=== PATIENT | male | born 2000 | race Caucasian/White ===

== ENCOUNTER 2018-07-01 12:56 | Emergency (ER) | payer OTHER ==
[2018-07-01] MEDS ORDERED: NAPROXEN 250 MG TABLET PO STA (13:52)
--- NOTE | 2018-07-01 14:46 | XRAY Report ---
Reason: cp Procedure Date: 07/01/2018 Accession Number: [id number] / [id number] Procedure: XR - Chest 2 View X-Ray CPT Code: 46297 FULL RESULT: EXAM: CHEST RADIOGRAPHY EXAM DATE: 07/01/2018 02:30 PM. CLINICAL HISTORY: Cp. COMPARISON: None. TECHNIQUE: 2 views. FINDINGS: Lungs/Pleura: No focal opacities evident. No pleural effusion. No pneumothorax. Normal volumes. Mediastinum: Heart and mediastinal contours are unremarkable. Other: None. IMPRESSION: Normal 2-view chest radiography. [facility]
--- NOTE | 2018-07-01 15:16 | ED Physician Documentation ---
History of Present Illness - Stated complaint Stated Complaint: SOA/TIGHNESS - Chief complaint Chief Complaint: Resp - Additonal information Additional information: 18-year-old male presents the emergency department for evaluation of day 2 of generalized weakness, body aches, chills, feeling feverish, feeling short of breath and generally unwell. The symptoms started rather suddenly yesterday while out after eating. The patient's symptoms have continued today.Symptoms are described as mild. No other associated symptoms. No relieving factors. Review of Systems Constitutional: reports: Fever, Chills, Myalgias, Fatigue Eyes: denies: Discharge Ears: denies: Ear pain Nose: denies: Rhinorrhea / runny nose Throat: reports: Sore throat Respiratory: reports: Dyspnea GI: denies: Abdominal Pain : denies: Dysuria Skin: denies: Rash Musculoskeletal: denies: Neck pain Neurologic: denies: Generalized weakness PD PAST MEDICAL HISTORY - Present Medications Home Medications: Ambulatory Orders Medication Instructions Recorded Confirmed No Known Home Medications 07/01/18 07/01/18 - Allergies Allergies/Adverse Reactions: Allergies Allergy/AdvReac Type Severity Reaction Status Date / Time Penicillins Allergy Rash Verified 07/01/18 13:09 - Social History Does the pt smoke?: No Smoking Status: Never smoker PD ED PE NORMAL - General General: Alert and oriented X 3, No acute distress - HEENT HEENT: Atraumatic, PERRL, EOMI, Ears normal - Neck Neck: Supple, no meningeal sign - Cardiac Cardiac: RRR, Strong equal pulses - Respiratory Respiratory: No respiratory distress - Abdomen Abdomen: Soft, Non tender - Derm Derm: Normal color - Extremities Extremities: No deformity, No edema - Neuro Neuro: Alert and oriented X 3, casing in line feeder 2-12 intact, Normal speech - Psych Psych: Normal mood Results - Vitals Vitals: Vital Signs - 24 hr 07/01/18 13:07 Temperature 36.4 C L Heart Rate 91 Respiratory 20 Rate Blood Pressure 146/93 H O2 Saturation 100 Oxygen O2 Source Room air - EKG (time done) 14:07 Rate: Rate (enter#) Rhythm: NSR Intervals: Normal [place] QRS: Normal Ischemia: Normal ST segments - Labs Labs: Laboratory Tests 07/01/18 14:04 Influenza A (Rapid) Negative Influenza B (Rapid) Negative - Rads (name of study) CXR Radiology: Final report received, See rad report (IMPRESSION: Normal 2-view chest radiography. ) PD MEDICAL DECISION MAKING - ED course ED course: The patient's symptoms seem to be consistent with a viral etiology. The patient on reevaluation is resting comfortably and appears to be in no acute distress and appears appropriate for discharge and ongoing outpatient management. The patient will return to the emergency department for any worsening or any concerns. Departure - Departure Disposition: 01 Home, Self Care Clinical Impression: Viral syndrome Condition: Good Instructions: ED Viral Syndrome Follow-Up: CLIFF[facility] Mina [Provider Group] - Within 1 week Comments: Please return to the emergency department for worsening symptoms or any concerns
[2018-07-01 15:30] VITALS: BP 129/79
== END 2018-07-01 15:30 | disposition home or self-care (01) ==
LOC: ED 12:56
DX: B34.9 Viral infection, unspecified (principal); Z88.0 Allergy status to penicillin
CPT/HCPCS: 71046; 87275; 87276; 93005; 99283; A9270

== ENCOUNTER 2019-03-23 17:46 | Emergency (ER) | payer OTHER ==
[2019-03-23 18:02] VITALS: BP 139/58
--- NOTE | 2019-03-23 18:28 | ED Physician Documentation ---
PD HPI HEENT - Stated complaint Stated Complaint: DENTAL PX - Chief complaint Chief Complaint: Heent - History obtained from History obtained from: Patient - History of Present Illness Timing - duration: Days (2-3) Timing - details: Gradual onset Severity Comments: Minimal pain that is relieved with ibuprofen Location: Other (Right jaw at the site of wisdom tooth extraction) Associated symptoms: No: Fever Recently seen: Not recently seen - Additional information Additional information: Is a 19-year-old who had his wisdom teeth extracted 8 days ago. He had a follow-up5 days ago and things seem to be doing well. He is now developed a weird taste coming from the socket on the bottom right. The other sites have healed without any problem. He has not had a fever. He feels like his right ears are ringing all the time. He has minimal pain that is relieved with ibuprofen. He is allergic to penicillin it causes a rash. No fever. Review of Systems Constitutional: denies: Fever Ears: reports: Tinnitus/ringing Throat: reports: Dental pain / toothache PD PAST MEDICAL HISTORY - Present Medications Home Medications: Ambulatory Orders Medication Instructions Recorded Confirmed Clindamycin HCl [Clindamycin 300MG 300 mg PO QID #40 capsule 03/23/19 CAP] - Allergies Allergies/Adverse Reactions: Allergies Allergy/AdvReac Type Severity Reaction Status Date / Time Penicillins Allergy Rash Verified 03/23/19 17:57 - Social History Does the pt smoke?: No Smoking Status: Never smoker PD ED PE NORMAL - Vitals Vital signs reviewed: Yes - General General: Alert and oriented X 3, No acute distress, Well developed/nourished - HEENT HEENT: Atraumatic, Moist mucous membranes, Other (The extraction sites on the left upper and lower are well-healed. The right lower there is still a hole president. There is no distinct odor. There is no inflammatory changes noted. No jaw swelling and no bony tenderness. There is no lymphadenopathy.) - Neck Neck: No adenopathy - Derm Derm: Normal color - Neuro Neuro: Alert and oriented X 3, Normal speech - Psych Psych: Normal mood, Normal affect Results - Vitals Vitals: Vital Signs - 24 hr 03/23/19 17:57 Temperature 36.8 C Heart Rate 85 Respiratory 16 Rate Blood Pressure 139/58 H O2 Saturation 100 Oxygen O2 Source Room air PD MEDICAL DECISION MAKING - ED course Complexity details: d/w patient ED course: 2 of 3 wisdom tooth extraction sites have healed well. Will place him on clindamycin given the penicillin allergy. He is to continue swishing with the oral rinse he was provided by the dentist. Recommended that he contact them for follow-up appointment to make sure that any infection has cleared. Departure - Departure Disposition: 01 Home, Self Care Clinical Impression: Pain, dental, Status post tooth extraction Condition: Good Instructions: ED Tooth Pain Follow-Up: [facility] Mina [Provider Group] Prescriptions: Clindamycin HCl [Clindamycin 300MG CAP] 300 mg PO QID #40 capsule Comments: Continue to do the oral rinses as prescribed by the dentist. Take the clindamycin 1 tablet 4 times a day. I would recommend that you take probiotics while you are taking the antibiotic and for 2 weeks afterwards. Follow-up with the dentist for reevaluation and make sure that the infection has been cleared. Discharge Date/Time: 03/23/19 18:40
== END 2019-03-23 18:40 | disposition home or self-care (01) ==
LOC: ED 17:46
DX: K08.89 Other specified disorders of teeth and supporting structures (principal); Z98.818 Other dental procedure status; Z88.0 Allergy status to penicillin; H93.11 Tinnitus, right ear
CPT/HCPCS: 99282; 99284

== ENCOUNTER 2019-06-11 12:06 | Emergency (ER) | payer OTHER ==
[2019-06-11 12:58] LABS: BASOPHILS % (AUTO) 0.4 %; EOSINOPHILS % (AUTO) 0.4 %; HGB - HEMOGLOBIN 14.6 g/dL (14.0-18.0); LYMPHOCYTES # (AUTO) 1.3 10^3/uL (1.5-3.5); LYMPHOCYTES % (AUTO) 25.8 %; MEAN CORPUSCULAR HEMOGLOBIN 30.4 pg (27.0-31.0); MEAN CORPUSCULAR HGB CONC 33.8 g/dL (32.0-36.0); MEAN CORPUSCULAR VOLUME 89.8 fL (80.0-94.0); MEAN PLATELET VOLUME 9.7 fL (7.4-11.4); MONOCYTES # (AUTO) 0.4 10^3/uL (0.0-1.0); MONOCYTES % (AUTO) 7.6 %; NEUTROPHILS # (AUTO) 3.2 10^3/uL (1.5-6.6); NEUTROPHILS % (AUTO) 65.6 %; PLT - PLATELET COUNT 246 10^3/uL (130-450); RED BLOOD COUNT 4.81 10^6/uL (4.70-6.10); RED CELL DISTRIBUTION WIDTH 11.4 % (12.0-15.0); WHITE BLOOD COUNT 4.9 x10^3/uL (4.8-10.8)
[2019-06-11 13:16] LABS: ALBUMIN 4.4 g/dL (3.2-5.5); BILIRUBIN,TOTAL 2.4 mg/dL (0.2-1.0); CALCIUM 9.4 mg/dL (8.5-10.3); TOTAL PROTEIN 6.6 g/dL (6.7-8.2)
[2019-06-11 15:35] LABS: BILIRUBIN,URINE NEGATIVE (NEGATIVE); GLUCOSE, URINE (UA) NEGATIVE (NEGATIVE); KETONES,URINE (UA) NEGATIVE (NEGATIVE); LEUKOCYTE ESTERASE, URINE TRACE (NEGATIVE); NITRITE,URINE NEGATIVE (NEGATIVE); OCCULT BLOOD,URINE NEGATIVE (NEGATIVE); PROTEIN,URINE NEGATIVE (NEGATIVE); UROBILINOGEN,URINE 0.2 (NORMAL) E.U./dL (NORMAL)
--- NOTE | 2019-06-11 15:35 | ED Physician Documentation ---
History of Present Illness - Stated complaint Stated Complaint: ABD PX - Chief complaint Chief Complaint: Abd Pain - Additonal information Additional information: This is a 19-year-old male who denies past medical history presents with abdomi nal pain for 4 to 5 months which got little bit worse recently. He states that his pain is been mostly left upper quadrant somewhat intermittent, radiates toward his epigastrium. In the last several days he is also had a bit of discomfort in his right lower quadrant this is come and gone. No nausea no vomiting no blood in his stool, he has not felt constipated. He has not yet seen a provider for this issue. He has not tried medications for it. No testicular pain, no pain or burning when he urinates. Review of Systems Constitutional: denies: Fever Cardiac: denies: Chest pain / pressure GI: reports: Abdominal Pain : denies: Dysuria Neurologic: denies: Generalized weakness Immunocompromised: denies: Immunocompromised PD PAST MEDICAL HISTORY - Past Medical History Past Medical History: No HEENT: Other - Past Surgical History Past Surgical History: No - Present Medications Home Medications: Ambulatory Orders Medication Instructions Recorded Confirmed Clindamycin HCl [Clindamycin 300MG 300 mg PO QID #40 capsule 03/23/19 CAP] Famotidine [Acid Controller] 20 mg PO DAILY #14 tablet 06/11/19 - Allergies Allergies/Adverse Reactions: Allergies Allergy/AdvReac Type Severity Reaction Status Date / Time Penicillins Allergy Rash Verified 06/11/19 12:15 - Social History Does the pt smoke?: No Smoking Status: Never smoker Does the pt drink ETOH?: Yes ETOH Use: Beer - Immunizations Immunizations are current?: Yes PD ED PE NORMAL - Vitals Vital signs reviewed: Yes - General General: Alert and oriented X 3, No acute distress - HEENT HEENT: PERRL - Neck Neck: Supple, no meningeal sign - Cardiac Cardiac: RRR, No murmur - Respiratory Respiratory: Clear bilaterally - Abdomen Abdomen: Soft, Non tender, Non distended, Other (No guarding. No right lower quadrant or right upper quadrant tenderness with deep palpation) - Derm Derm: Warm and dry - Extremities Extremities: No deformity - Neuro Neuro: Alert and oriented X 3, filter washer and presser 2-12 intact, No motor deficit, No sensory deficit - Psych Psych: Normal mood, Normal affect Results - Vitals Vitals: Vital Signs - 24 hr 06/11/19 06/11/19 12:11 15:36 Temperature 36.5 C 36.6 C Heart Rate 67 82 Respiratory 18 16 Rate Blood Pressure 134/73 H 121/70 O2 Saturation 100 99 Oxygen O2 Source Room air - Labs Labs: Laboratory Tests 06/11/19 06/11/19 06/11/19 12:50 12:50 15:23 WBC 4.9 RBC 4.81 Hgb 14.6 Hct 43.2 MCV 89.8 MCH 30.4 MCHC 33.8 RDW 11.4 L Plt Count 246 MPV 9.7 Neut # (Auto) 3.2 Lymph # (Auto) 1.3 L [place] # (Auto) 0.4 Eos # (Auto) 0.0 Baso # (Auto) 0.0 Absolute Nucleated RBC 0.00 Nucleated RBC % 0.0 Sodium 140 Potassium 4.1 Chloride 101 Carbon Dioxide 28 Anion Gap 11.0 BUN 15 Creatinine 1.0 Estimated GFR (MDRD) 94 Glucose 97 Calcium 9.4 Total Bilirubin 2.4 H AST 21 ALT 16 Alkaline Phosphatase 51 Total Protein 6.6 L Albumin 4.4 Globulin 2.2 Albumin/Globulin Ratio 2.0 Lipase 24 Urine Color YELLOW Urine Clarity CLEAR Urine pH 6.0 Ur Specific [place] 1.025 Urine Protein NEGATIVE Urine Glucose (UA) NEGATIVE Urine Ketones NEGATIVE Urine Occult Blood NEGATIVE Urine Nitrite NEGATIVE Urine Bilirubin NEGATIVE Urine Urobilinogen 0.2 (NORMAL) Ur Leukocyte Esterase TRACE H Urine RBC None Seen Urine WBC 0-3 Ur Squamous Epith Cells NONE SEEN Urine Bacteria None Seen Ur Microscopic Review INDICATED Urine Culture Comments INDICATED Chlam trachomat DNA PCR N.gonorrhoeae DNA (PCR) T. vaginalis (PCR) 06/11/19 15:23 WBC RBC Hgb Hct MCV MCH MCHC RDW Plt Count MPV Neut # (Auto) Lymph # (Auto) [place] # (Auto) Eos # (Auto) Baso # (Auto) Absolute Nucleated RBC Nucleated RBC % Sodium Potassium Chloride Carbon Dioxide Anion Gap BUN Creatinine Estimated GFR (MDRD) Glucose Calcium Total Bilirubin AST ALT Alkaline Phosphatase Total Protein Albumin Globulin Albumin/Globulin Ratio Lipase Urine Color Urine Clarity Urine pH Ur Specific [place] Urine Protein Urine Glucose (UA) Urine Ketones Urine Occult Blood Urine Nitrite Urine Bilirubin Urine Urobilinogen Ur Leukocyte Esterase Urine RBC Urine WBC Ur Squamous Epith Cells Urine Bacteria Ur Microscopic Review Urine Culture Comments Chlam trachomat DNA PCR NEGATIVE N.gonorrhoeae DNA (PCR) NEGATIVE T. vaginalis (PCR) NEGATIVE PD MEDICAL DECISION MAKING - ED course ED course: On examination patient is very well-appearing, vital signs are benign I do not elicit any tenderness of the palpation and any of the 4 abdominal quadrants. He has no vomiting, no urinary complaints, no scrotal pain. His pain is also been going on for 4 to 5 months, making acute abdominal pathology extremely unlikely. His labs show no leukocytosis, CBC is within normal limits, his CMP is notable only for a mildly elevated bilirubin of 2.4. He has no right upper quadrant pain with deep palpation, his discomfort is on the left upper quadrant. No signs of acute biliary pathology at this time. His urine does not show convincing signs of infection, he does have 0-3 white blood cells, and out of an abundance of caution I did send Chlamydia gonorrhea, which is also negative. I discussed with the patient that given his reassuring labs, vital signs, and abdominal exam I recommended close outpatient follow up and it would also be reasonable to try acid blocking medication given he occasionally has a burning sensations epi gastrium that improved when he burps. I prescribed him famotidine. I discussed the importance of PCP follow-up, and also discussed return precautions, particularly if he is having pain that localizes to his right upper right lower quadrant, if he is having persistent vomiting, fever, or any other concerning symptoms. Patient agreed with this plan was discharged home in very good condition. Departure - Departure Disposition: 01 Home, Self Care Clinical Impression: Abdominal pain Qualifiers: Abdominal location: unspecified location Qualified Code(s): R10.9 - Unspecified abdominal pain Condition: Good Instructions: ED Abdominal Pain Unkn Cause Prescriptions: Famotidine [Acid Controller] 20 mg PO DAILY #14 tablet Comments: You were seen today for abdominal discomfort. Your labs are reassuring at this time, and I have not seen obvious cause of your pain. Please follow-up with your primary care provider. If you having new or concerning symptoms such as pain that localizes to right lower quadrant, vomiting, fever, or other concerning symptoms return to the emergency department. Discharge Date/Time: 06/11/19 16:14
[2019-06-11 15:38] VITALS: BP 121/70
[2019-06-11 15:38] LABS: CLARITY,URINE CLEAR (CLEAR)
[2019-06-11 15:50] LABS: BACTERIA,URINE None Seen /HPF (None Seen); RBC,URINE None Seen /HPF (0-5); SQUAMOUS EPITHELIAL CELL,UR NONE SEEN (<= Few)
[2019-06-11 23:24] LABS: TRICHOMONAS VAGINALIS DNA NEGATIVE (NEGATIVE)
== END 2019-06-11 16:14 | disposition home or self-care (01) ==
LOC: ED 12:06
DX: R10.12 Left upper quadrant pain (principal)
CPT/HCPCS: 36415; 80053; 81001; 81003; 83690; 85025; 87086; 87491; 87591; 87661; 99283; 99284

== ENCOUNTER 2019-06-18 18:44 | Emergency (ER) | payer OTHER ==
--- NOTE | 2019-06-18 20:11 | ED Physician Documentation ---
PD HPI CHEST PAIN - Stated complaint Stated Complaint: PALPUTATIONS,DIZZY - Chief complaint Chief Complaint: Cardiac - History obtained from History obtained from: Patient - History of Present Illness Timing - onset: How many days ago (4) Timing - onset during: Rest Timing - duration: Days (4) Timing - details: Gradual onset, Still present, Intermittant Quality: Throbbing (has intermittent feeling of heart surging/jumping. Has noted his heart rate faster about 100-110 at times (according to his watch heart beat monitor). Did not have any HR in the 140-180 range. Had drank a lot on Monday night, so thought maybe dehydrated. Had some Red Bulls with it as well and does not drink caffeine usually. Has continued with the palpitations feeling since, so here for eval. No dyspnea nor lightheaded feelings.). No: Pressure, Tightness Location: Substernal, Left chest Worsened by: Other (notes the symptoms most when resting.). No: Exertion, Inspiration Associated symptoms: Palpitations. No: Shortness of air, Nausea, Vomiting, Feeling faint / dizzy Similar symptoms before: Has not had sx before Recently seen: Not recently seen Review of Systems Constitutional: denies: Fever, Chills, Myalgias Nose: denies: Rhinorrhea / runny nose, Congestion Throat: denies: Sore throat Cardiac: reports: Palpitations. denies: Chest pain / pressure, Pedal edema, Calf pain Respiratory: denies: Cough GI: denies: Nausea, Vomiting, Constipation, Diarrhea Neurologic: denies: Focal weakness, Numbness, Near syncope, Altered mental status PD PAST MEDICAL HISTORY - Past Medical History Cardiovascular: None Respiratory: None Neuro: None Endocrine/Autoimmune: None HEENT: Other - Past Surgical History Past Surgical History: No - Present Medications Home Medications: Ambulatory Orders Medication Instructions Recorded Confirmed Famotidine [Acid Controller] 20 mg PO DAILY #14 tablet 06/11/19 Potassium Chloride 10 meq PO DAILY #15 capsule.er 06/18/19 - Allergies Allergies/Adverse Reactions: Allergies Allergy/AdvReac Type Severity Reaction Status Date / Time Penicillins Allergy Rash Verified 06/18/19 18:52 - Social History Does the pt smoke?: No Smoking Status: Never smoker Does the pt drink ETOH?: Yes - Immunizations Immunizations are current?: Yes PD ED PE NORMAL - Vitals Vital signs reviewed: Yes - General General: Alert and oriented X 3, No acute distress, Well developed/nourished - HEENT HEENT: Moist mucous membranes, Pharynx benign - Neck Neck: Supple, no meningeal sign, No adenopathy, Thyroid normal - Cardiac Cardiac: RRR, No murmur - Respiratory Respiratory: Clear bilaterally - Abdomen Abdomen: Soft, Non tender - Derm Derm: Normal color, Warm and dry - Extremities Extremities: No tenderness to palpate, Normal ROM s pain, No edema, No calf tenderness / cord - Neuro Neuro: Alert and oriented X 3, No motor deficit, Normal speech Results - Vitals Vitals: Vital Signs - 24 hr 06/18/19 06/18/19 18:49 21:16 Temperature 36.8 C Heart Rate 80 80 Respiratory 18 18 Rate Blood Pressure 148/88 H 114/75 O2 Saturation 100 100 Oxygen O2 Source Room air - EKG (time done) 18:57 Rate: Rate (enter#) (81) Rhythm: NSR [place]: Normal Intervals: Normal [place] QRS: Normal Ischemia: Normal ST segments. No: ST elevation c/w ischemia, ST depression - Labs Labs: Laboratory Tests 06/18/19 06/18/19 06/18/19 20:20 20:20 20:20 WBC 7.2 RBC 4.68 L Hgb 14.1 Hct 41.6 L MCV 88.9 MCH 30.1 MCHC 33.9 RDW 11.6 L Plt Count 249 MPV 9.8 Neut # (Auto) 4.9 Lymph # (Auto) 1.8 [place] # (Auto) 0.5 Eos # (Auto) 0.0 Baso # (Auto) 0.0 Absolute Nucleated RBC 0.00 Nucleated RBC % 0.0 Sodium 137 Potassium 3.4 L Chloride 97 L Carbon Dioxide 29 Anion Gap 11.0 BUN 19 Creatinine 1.1 Estimated GFR (MDRD) 85 L Glucose 94 Calcium 9.1 Magnesium 2.2 Total Bilirubin 2.3 H AST 20 ALT 14 Alkaline Phosphatase 52 Total Protein 7.0 Albumin 4.5 Globulin 2.5 Albumin/Globulin Ratio 1.8 Lipase 27 TSH 1.19 PD MEDICAL DECISION MAKING - ED course Complexity details: reviewed results (slightly low potassium. Else normal. ), considered differential, d/w patient Departure - Departure Disposition: 01 Home, Self Care Clinical Impression: Palpitations, Hypokalemia Condition: Stable Record reviewed to determine appropriate education?: Yes Instructions: ED Palpitations Prescriptions: Potassium Chloride 10 meq PO DAILY #15 capsule.er Comments: Your EKG is normal here. The palpitations you are feeling may be a persistent effect from the caffeine and such that you had a few days ago. Stay well- hydrated. And I would anticipate this to improve over the next few days. Your potassium level is a little bit low and can be enhancing the palpitations occurring. Add a potassium supplement over the next week or so. Recheck if not improved over the next few days. Discharge Date/Time: 06/18/19 21:43
[2019-06-18 20:25] LABS: BASOPHILS % (AUTO) 0.3 %; EOSINOPHILS % (AUTO) 0.3 %; HGB - HEMOGLOBIN 14.1 g/dL (14.0-18.0); LYMPHOCYTES # (AUTO) 1.8 10^3/uL (1.5-3.5); LYMPHOCYTES % (AUTO) 25.2 %; MEAN CORPUSCULAR HEMOGLOBIN 30.1 pg (27.0-31.0); MEAN CORPUSCULAR HGB CONC 33.9 g/dL (32.0-36.0); MEAN CORPUSCULAR VOLUME 88.9 fL (80.0-94.0); MEAN PLATELET VOLUME 9.8 fL (7.4-11.4); MONOCYTES # (AUTO) 0.5 10^3/uL (0.0-1.0); MONOCYTES % (AUTO) 6.9 %; NEUTROPHILS # (AUTO) 4.9 10^3/uL (1.5-6.6); PLT - PLATELET COUNT 249 10^3/uL (130-450); RED BLOOD COUNT 4.68 10^6/uL (4.70-6.10); RED CELL DISTRIBUTION WIDTH 11.6 % (12.0-15.0); WHITE BLOOD COUNT 7.2 x10^3/uL (4.8-10.8)
[2019-06-18] MEDS ORDERED: POTASSIUM CHLORIDE 20 MEQ TABLET PO STA (20:35)
[2019-06-18 20:38] LABS: ALBUMIN 4.5 g/dL (3.2-5.5); ALBUMIN/GLOBULIN RATIO 1.8 (1.0-2.2); BILIRUBIN,TOTAL 2.3 mg/dL (0.2-1.0); CALCIUM 9.1 mg/dL (8.5-10.3); CREATININE 1.1 mg/dL (0.6-1.2); MAGNESIUM 2.2 mg/dL (1.7-2.8)
[2019-06-18] MEDS ORDERED: MAGNESIUM OXIDE 400 MG TABLET PO STA (20:46)
[2019-06-18 21:17] VITALS: BP 114/75
[2019-06-19] MEDS ORDERED: MAGNESIUM OXIDE 400 MG TABLET PO SCH (08:00)
== END 2019-06-18 21:43 | disposition home or self-care (01) ==
LOC: ED 18:44
DX: R00.2 Palpitations (principal); E87.6 Hypokalemia
CPT/HCPCS: 36415; 83690; 83735; 93005; 99283; 99284; A9270; 80053; 84443; 85025

== ENCOUNTER 2021-01-10 15:29 | Emergency (ER) | payer OTHER ==
[2021-01-10 16:18] LABS: BASOPHILS % (AUTO) 0.3 %; EOSINOPHILS % (AUTO) 0.4 %; HCT - HEMATOCRIT 43.5 % (42.0-52.0); HGB - HEMOGLOBIN 14.6 g/dL (14.0-18.0); LYMPHOCYTES # (AUTO) 1.6 10^3/uL (1.5-3.5); LYMPHOCYTES % (AUTO) 19.8 %; MEAN CORPUSCULAR HEMOGLOBIN 30.5 pg (27.0-31.0); MEAN CORPUSCULAR HGB CONC 33.6 g/dL (32.0-36.0); MEAN CORPUSCULAR VOLUME 90.8 fL (80.0-94.0); MEAN PLATELET VOLUME 9.7 fL (7.4-11.4); MONOCYTES # (AUTO) 0.6 10^3/uL (0.0-1.0); MONOCYTES % (AUTO) 7.3 %; NEUTROPHILS # (AUTO) 5.7 10^3/uL (1.5-6.6); NEUTROPHILS % (AUTO) 71.8 %; PLT - PLATELET COUNT 232 10^3/uL (130-450); RED BLOOD COUNT 4.79 10^6/uL (4.70-6.10); RED CELL DISTRIBUTION WIDTH 11.6 % (12.0-15.0); WHITE BLOOD COUNT 7.9 x10^3/uL (4.8-10.8)
[2021-01-10 16:32] LABS: ALBUMIN 4.2 g/dL (3.2-5.5); ALBUMIN/GLOBULIN RATIO 1.9 (1.0-2.2); BILIRUBIN,TOTAL 1.8 mg/dL (0.2-1.0); CALCIUM 9.6 mg/dL (8.5-10.3); POTASSIUM 4.2 mmol/L (3.5-5.0); TOTAL PROTEIN 6.4 g/dL (6.7-8.2)
[2021-01-10 17:59] LABS: BILIRUBIN,URINE NEGATIVE (NEGATIVE); GLUCOSE, URINE (UA) NEGATIVE (NEGATIVE); KETONES,URINE (UA) NEGATIVE (NEGATIVE); LEUKOCYTE ESTERASE, URINE NEGATIVE (NEGATIVE); NITRITE,URINE NEGATIVE (NEGATIVE); OCCULT BLOOD,URINE NEGATIVE (NEGATIVE); PROTEIN,URINE NEGATIVE (NEGATIVE); UROBILINOGEN,URINE 0.2 (NORMAL) E.U./dL (NORMAL)
[2021-01-10 18:00] LABS: CLARITY,URINE CLEAR (CLEAR)
[2021-01-10] MEDS ORDERED: IOPAMIDOL-300 100 ML VIAL ONE (18:13)
--- NOTE | 2021-01-10 18:15 | ED Physician Documentation ---
PD HPI ABD PAIN - Stated complaint Stated Complaint: ABD PX - Chief complaint Chief Complaint: Abd Pain - History obtained from History obtained from: Patient - History of Present Illness Timing - onset: How many weeks ago (2) Timing - duration: Weeks (2) Timing - details: Intermittant, Waxing and waning Pain level max: 7 Pain level now: 3 Quality: Aching, Pain Location: RLQ Radiation: No: Chest, , Lower back, Left flank, Left shoulder, Right flank, Right shoulder, Upper back Improved by: No: Eating, Laying still, Vomiting, BM, Position, Meds Worsened by: Moving, Palpation Associated symptoms: No: Fever, Nausea, Vomiting, Hematemesis, Diarrhea, Constipation, Melena, Hematochezia, Dysuria, Hematuria Review of Systems Ten Systems: 10 systems reviewed and negative Constitutional: denies: Fever, Chills Nose: denies: Rhinorrhea / runny nose, Congestion Throat: denies: Sore throat Cardiac: denies: Palpitations Respiratory: denies: Cough GI: denies: Abdominal Pain, Nausea, Vomiting, Diarrhea Skin: denies: Rash Musculoskeletal: denies: Neck pain, Back pain Neurologic: denies: Headache PD PAST MEDICAL HISTORY - Past Medical History Cardiovascular: None Respiratory: None Neuro: None Endocrine/Autoimmune: None HEENT: Other - Past Surgical History Past Surgical History: No - Present Medications Home Medications: Ambulatory Orders Medication Instructions Recorded Confirmed Famotidine [Acid Controller] 20 mg PO DAILY #14 tablet 06/11/19 Potassium Chloride 10 meq PO DAILY #15 capsule.er 06/18/19 - Allergies Allergies/Adverse Reactions: Allergies Allergy/AdvReac Type Severity Reaction Status Date / Time Penicillins Allergy Rash Verified 01/10/21 16:09 - Social History Does the pt smoke?: No Smoking Status: Never smoker Does the pt drink ETOH?: Yes Does the pt have substance abuse?: No - Immunizations Immunizations are current?: Yes PD ED PE NORMAL - Vitals Vital signs reviewed: Yes - General General: Alert and oriented X 3, No acute distress - HEENT HEENT: Moist mucous membranes - Neck Neck: Supple, no meningeal sign - Cardiac Cardiac: RRR, Strong equal pulses - Respiratory Respiratory: No respiratory distress, Clear bilaterally - Abdomen Abdomen: Soft, Non distended, Other (mild TTP RLQ. no peritoneal signs.) - Back Back: No CVA TTP, No spinal TTP - Derm Derm: Warm and dry - Neuro Neuro: Alert and oriented X 3 - Psych Psych: Normal mood, Normal affect Results - Vitals Vitals: Vital Signs - 24 hr 01/10/21 01/10/21 01/10/21 16:07 19:28 20:10 Temperature 36.6 C 37.1 C Heart Rate 72 60 70 Respiratory 16 16 16 Rate Blood Pressure 140/79 H 136/73 H 132/68 H O2 Saturation 100 100 100 Oxygen O2 Source Room air - Labs Labs: Laboratory Tests 01/10/21 01/10/21 01/10/21 16:14 16:14 17:52 WBC 7.9 RBC 4.79 Hgb 14.6 Hct 43.5 MCV 90.8 MCH 30.5 MCHC 33.6 RDW 11.6 L Plt Count 232 MPV 9.7 Neut # (Auto) 5.7 Lymph # (Auto) 1.6 [place] # (Auto) 0.6 Eos # (Auto) 0.0 Baso # (Auto) 0.0 Absolute Nucleated RBC 0.00 Nucleated RBC % 0.0 Sodium 144 Potassium 4.2 Chloride 107 Carbon Dioxide 28 Anion Gap 9.0 BUN 21 H Creatinine 1.0 Estimated GFR (MDRD) 93 Glucose 93 Calcium 9.6 Total Bilirubin 1.8 H AST 22 ALT 18 Alkaline Phosphatase 51 Total Protein 6.4 L Albumin 4.2 Globulin 2.2 Albumin/Globulin Ratio 1.9 Lipase 26 Urine Color YELLOW Urine Clarity CLEAR Urine pH 6.0 Ur Specific [place] 1.025 Urine Protein NEGATIVE Urine Glucose (UA) NEGATIVE Urine Ketones NEGATIVE Urine Occult Blood NEGATIVE Urine Nitrite NEGATIVE Urine Bilirubin NEGATIVE Urine Urobilinogen 0.2 (NORMAL) Ur Leukocyte Esterase NEGATIVE Ur Microscopic Review NOT INDICATED Urine Culture Comments NOT INDICATED - Rads (name of study) CT abdomen/pelvis Radiology: Final report received, EMP read contemporaneously, See rad report (Normal appendix. No acute abnormality. ) PD MEDICAL DECISION MAKING - ED course Complexity details: reviewed results, re-evaluated patient, considered differential, d/w patient ED course: Patient with right lower quadrant abdominal pain. Unclear etiology. No acute findings on CT scan, laboratory testing. Patient is well-appearing, nontoxic. Does not appear to be in significant distress at this time. We will continue supportive care and have him follow-up with his doctor for further care. Patient denies any symptoms of a hernia, feeling any masses or bulges. Patient counseled regarding signs and symptoms for which I believe and urgent re- evaluation would be necessary. Patient with good understanding of and agreement to plan and is comfortable going home at this time This document was made in part using voice recognition software. While efforts are made to proofread this document, sound alike and grammatical errors may occur. Departure - Departure Disposition: Home, Self Care Clinical Impression: Abdominal pain Qualifiers: Abdominal location: right lower quadrant Qualified Code(s): R10.31 - Right lower quadrant pain Condition: Good Instructions: ED Abdominal Pain Unkn Cause Male Follow-Up: your,doctor in 1 week for recheck [Other] Comments: The cause of your symptoms is unclear. Your laboratory testing does not show any acute abnormalities today. Your CT scan does not show any acute abnormalities either. Please follow-up with your doctor for further care. Return if you worsen. Discharge Date/Time: 01/10/21 20:11
[2021-01-10] MEDS ORDERED: IOPAMIDOL-300 100 ML VIAL IVP ONE (18:25)
--- NOTE | 2021-01-10 19:38 | CT Report ---
PROCEDURE: Abdomen/Pelvis W INDICATIONS: RLQ abd pain CONTRAST: IV CONTRAST: Isovue 300 ml: 100 PO CONTRAST: *NO PO CONTRAST TECHNIQUE: After the administration of IV contrast, 5 mm thick sections acquired from the diaphragms to the symp hysis. 5 mm thick coronal and sagittal reformats were acquired. For radiation dose reduction, the f ollowing was used: automated exposure control, adjustment of mA and/or kV according to patient size. COMPARISON: None. FINDINGS: ABDOMEN: Lung bases: Normal Heart:Normal. Liver: Normal. Gallbladder: Normal Bile ducts: Normal. Pancreas: Normal. Spleen: Normal. Adrenals: Normal. Kidneys and ureters: Normal. Stomach and duodenum: Normal. Bowel: Normal. Normal appearance of the appendix. Other: No free fluid or air. Abdominal nodes: Normal. Aorta: Normal in size. IVC: Normal. Ventral wall: Normal. PELVIS: Bladder: Normal. Pelvic nodes: Normal. Inguinal: No hernia. Bones: No vertebral body compression fracture. No suspicious bone lesion. IMPRESSION: Normal appendix. No acute abnormality. Reviewed by: Berto Traore MD on 01/10/2021 7:36 PM PDT Approved by: Berto Traore MD on 01/10/2021 7:36 PM PDT Station ID: [id number]
[2021-01-10 20:11] VITALS: BP 132/68
== END 2021-01-10 20:11 | disposition home or self-care (01) ==
LOC: ED 15:29
DX: R10.31 Right lower quadrant pain (principal)
CPT/HCPCS: 36415; 74177; 80053; 81003; 83690; 85025; 99284; Q9967; 81001; 87086

== ENCOUNTER 2021-07-16 09:48 | Emergency (ER) | payer OTHER ==
[2021-07-16 09:56] VITALS: BP 143/80
--- NOTE | 2021-07-16 10:26 | ED Physician Documentation ---
PD HPI BACK PAIN - Stated complaint Stated Complaint: BACK PX - Chief complaint Chief Complaint: Back Pain - History obtained from History obtained from: Patient - Additional information Additional information: Right upper back pain x 2 days, worse with motion, better with rest, no injury. No fevers/IVDU. No weakness, numbness, saddle anesthesia, incontinence Review of Systems Constitutional: denies: Fever, Chills Cardiac: denies: Chest pain / pressure, Palpitations Respiratory: denies: Dyspnea, Cough PD PAST MEDICAL HISTORY - Past Medical History Cardiovascular: None Respiratory: None Neuro: None Endocrine/Autoimmune: None HEENT: Other - Past Surgical History Past Surgical History: No - Present Medications Home Medications: Ambulatory Orders Medication Instructions Recorded Confirmed Cyclobenzaprine [Flexeril] 10 mg PO TID PRN #20 tablet 07/16/21 - Allergies Allergies/Adverse Reactions: Allergies Allergy/AdvReac Type Severity Reaction Status Date / Time Penicillins Allergy Rash Verified 07/16/21 09:56 - Social History Does the pt smoke?: No Smoking Status: Never smoker Does the pt drink ETOH?: Yes Does the pt have substance abuse?: No - Immunizations Immunizations are current?: Yes PD ED PE NORMAL - Vitals Vital signs reviewed: Yes - General General: Alert and oriented X 3, No acute distress - HEENT HEENT: PERRL, EOMI - Back Back: Other (Tender right lower thoracic and upper lumbar musculature on the right, no midline spinal tenderness.) - Extremities Extremities: Other (The patient has equal and normal Achilles and patellar reflexes bilaterally. Normal sensation in all areas of the legs. Patient d enies saddle anesthesia. Normal strength in flexion-extension at the ankles, knees, and flexion of the hips.) - Neuro Neuro: Alert and oriented X 3, Normal speech Results - Vitals Vitals: Vital Signs - 24 hr 07/16/21 09:53 Temperature 36.4 C L Heart Rate 77 Respiratory 12 Rate Blood Pressure 143/80 H O2 Saturation 100 Oxygen O2 Source Room air PD MEDICAL DECISION MAKING - ED course ED course: This patient has seemingly uncomplicated musculoskeletal back pain. The patient has no "red flags." Specifically denies IV drug use, fevers, incontinence, saddle anesthesia. Spinal epidural abscess was considered, given that the patient has no fever, is not diabetic, has no spinal tenderness, does not use IV drugs, and has no bilateral neurologic symptoms, the diagnosis of spinal epidural abscess is considered exceedingly unlikely. Departure - Departure Disposition: 01 Home, Self Care Clinical Impression: Back spasm Condition: Good Record reviewed to determine appropriate education?: Yes Instructions: ED Spasm Back No Trauma Prescriptions: Cyclobenzaprine [Flexeril] 10 mg PO TID PRN #20 tablet PRN Reason: Spasms Comments: [facility] [place] [place] return for new or worsening symptoms. Forms: Activity restrictions
[2021-07-16] MEDS ORDERED: KETOROLAC 60 MG/2 ML VIAL IM STA (10:30)
== END 2021-07-16 10:54 | disposition home or self-care (01) ==
LOC: ED 09:48
DX: M62.830 Muscle spasm of back (principal)
CPT/HCPCS: 96372; 99282; 99283